=== PATIENT | female | born 1930 | race African-American/Black ===

== ENCOUNTER 2018-06-04 15:07 | Inpatient (IN) ==
[2018-06-04 20:31] LABS: BASO# 0.02 X1000 (0.0-0.2); BASO% 0.3 % (0.0-0.8); EOS# 0.03 X1000 (0.0-0.7); EOS% 0.5 % (0.0-10.0); HEMATOCRIT 37.8 % (37.0-47.0); HEMOGLOBIN 12.1 g/dL (12.0-16.0); IMM GRAN# 0.02 X1000 (0.0-0.04); IMM GRAN% 0.3 % (0.0-0.5); LYMPH# 1.07 X1000 (1.2-3.4); LYMPH% 16.4 % (20.5-51.1); MCH 28.4 PG (27-31); MCV 88.7 FL (81-99); MONO% 6.1 % (1.7-9.3); MPV 13.4 FL (7.4-10.4); NEUT# 4.97 X1000 (1.4-6.5); NEUT% 76.4 % (42.2-75.2); PLT 211 X1000 (130-400); RBC 4.26 XMIL (4.2-5.4); RDW 13.7 % (11.5-14.5); WBC 6.51 X1000 (4.8-10.8)
[2018-06-04 21:06] LABS: ALBUMIN 3.7 g/dL (3.5-5.0); CREATININE 2.6 mg/dL (0.5-0.9); TOTAL BILIRUBIN 0.2 mg/dL (0.20-1.00); TOTAL PROTEIN 7.1 g/dL (6.3-8.3)
[2018-06-04 21:07] LABS: POTASSIUM 6.2 mmol/L (3.5-5.1)
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
[2018-06-04] MEDS ORDERED: HUMULIN R IV ONE (21:12)
[2018-06-04] MEDS ORDERED: SODIUM BICARBONATE 8.4% IV PUSH ONE (21:12)
[2018-06-04] MEDS ORDERED: HUMULIN R (PARKWAY) ONE (21:14)
[2018-06-04 21:23] LABS: BILIRUBIN URINE NEGATIVE (NEGATIVE); BLOOD URINE NEGATIVE (NEGATIVE); CLARITY CLEAR (CLEAR); COLOR YELLOW; KETONE URINE NEGATIVE (NEGATIVE); LEUKOCYTES URINE TRACE (NEGATIVE); NITRITE URINE NEGATIVE (NEGATIVE); PROTEIN URINE NEGATIVE (NEGATIVE); URINE BACTERIA 4+ /HFP; URINE EPITHELIAL CELLS <10 /HPF (<10); URINE SOURCE CLEAN CATCH; URINE WBC <10 /HPF (<10); UROBILINOGEN URINE NORMAL
--- NOTE | 2018-06-04 21:35 | PROVIDER DOCUMENTATION ---
HPI-General Adult - General Chief Complaint: General Adult Stated Complaint: Fall Time Seen by Provider: 06/04/18 19:37 Source: patient, family Allergies/Adverse Reactions: Patient Allergies Allergy/AdvReac Type Severity Reaction Status Date / Time No Known Allergies Allergy Verified 06/04/18 15:18 Home Medications: Home Medication List Medication Instructions Recorded Confirmed Last Taken Type Desipramine HCl 10 mg PO HS 06/17/16 12/11/17 06/16/16 21:00 History Gabapentin 100 mg PO HS 06/17/16 12/11/17 06/16/16 21:00 History Furosemide [Lasix] 40 mg PO DAILY #30 06/21/16 12/11/17 06/16/16 08:00 Rx Allopurinol 100 mg PO DAILY 12/11/17 12/11/17 Unknown History Aspirin [Aspir-Low] 1 tab PO DAILY 12/11/17 12/11/17 Unknown History Calcium Citrate/Vitamin D3 1 tab PO DAILY 12/11/17 12/11/17 Unknown History [Calcitrate + Vit D Caplet] Carbidopa/Levodopa [Sinemet 25/100] 1 each PO DAILY PRN 12/11/17 12/11/17 Unknown History Cholecalciferol (Vitamin D3) 2,000 unit PO DAILY 12/11/17 12/11/17 Unknown History [Vitamin D3] Iron Fum,Ps/Folic/Bcomp,C No.9 1 cap PO DAILY 12/11/17 12/11/17 Unknown History [Folivane-Plus Capsule] Linaclotide [Linzess] 290 mcg PO DAILY 12/11/17 12/11/17 Unknown History Potassium Chloride 20 mg PO BID 12/11/17 12/11/17 Unknown History Hydrocodone/Acetaminophen [[place] 1 ea PO Q12H PRN PRN #20 tab 12/14/17 Unknown Rx 5-325 Tablet] Insulin Glargine [Basaglar] 15 unit SUBQ HS #1 insuln.pen 12/14/17 Unknown Rx Insulin Regular, Human [Novolin R] See Protocol SQ AC + HS #1 vial 12/15/17 Unknown Rx - History of Present Illness -Gen Adult Nature of Presenting Problems: Patient is a 87 year old black female with history of diabetes, HTN,atrial fibrillation, and arthritis who presents with worsening pain and weakness in lower extremities for past several days. Denies fever, chills, chest pain, productive cough, nausea, vomiting, or diarrhea. Followed by Dr. Covarrubias. Review of Systems - Adult - REVIEW OF SYSTEMS - ADULT ROS:: ROS per family Constitutional: denies: chills, fever Eyes: reports: no symptoms reported Ears, Nose, Mouth & Throat: reports: no symptoms reported Cardiovascular: denies: chest pain Respiratory: denies: shortness of breath Gastrointestinal: denies: abdominal pain, nausea, vomiting Genitourinary: denies: dysuria Musculoskeletal: reports: see HPI Integumentary: denies: rash Neurological: reports: other (generalized weakness) Psychiatric: reports: see HPI Endocrine: reports: increased thirst, polyuria Hematologic/Lymphatic: reports: no symptoms reported Allergic/Immunologic: reports: see HPI All Other Systems: Reviewed and Negative Past History - Adult - PAST MEDICAL HISTORY-ADULT Review of Records: reports: Old Records Reviewed, Nursing Assessment Review, Medications Reviewed, Social history reviewed & non-contributory. Major Childhood Illnesses: reports: denies history Cardiovascular: reports: A-Fib, HTN, hyperlipidemia Respiratory: reports: asthma Gastrointestinal: reports: GERD Obstetrical/Gynecological: reports: denies history Genitourinary: reports: other (hx of acute and chronic kidney dz) Musculoskeletal: reports: arthritis (gout) Neurological: reports: CVA, other (periphreal neurpothay) Endocrine/Immune: reports: anemia, Diabetes Other Conditions: reports: denies history - PRIOR SURGERIES/PROCEDURES Surgical/Procedure History: reports: cholecystectomy, hysterectomy, other ( cataract ) - IMMUNIZATION STATUS Childhood Immunizations: See Nurse Assessment Flu Vaccine: See Nurse Assessment - FAMILY HISTORY Family History: reviewed, not pertinent Physical Exam-General - PHYSICAL EXAM-ADULT Initial Vital Signs Reviewed: Yes - CONSTITUTIONAL General Appearance: alert, other (generalized aches) - EYES Eyes: other (clear) - HEAD, EARS, NOSE, MOUTH & THROAT HENMT: other (semimoist membranes) - NECK Neck: supple - RESPIRATORY Respiratory: no respiratory distress, no accessory muscle use, decreased breath sounds - CARDIOVASCULAR Cardiovascular: regular rate, rhythm - GASTROINTESTINAL (ABDOMEN) Abdominal Exam: non tender, soft. negative: distended, guarding, rebound - LYMPHATIC Lymphatic: no adenopathy - MUSCULOSKELETAL Back Exam: normal inspection, no CVA tenderness Extremity: other (vague lower extremity tenderness, no deformities, good distal capillary refill) - SKIN Integumentary: other (decreased turbor) - NEUROLOGIC Neurologic: other (nonfocal) - PSYCHIATRIC Psych/Mental Status: other (demented) Progress - PLAN OF CARE/RESULTS Progress/Plan/Lab Results: Vital Signs - 8 hr 06/04/18 15:14 06/04/18 17:01 06/04/18 20:37 Temperature 98.3 F 97.6 F 97.8 F Pulse Rate 82 67 64 Respiratory Rate 16 14 20 Blood Pressure 161/83 157/93 186/74 O2 Sat by Pulse Oximetry 95 96 96 Laboratory Results - last 24 hr 06/04/18 06/04/18 06/04/18 20:28 20:28 20:36 WBC 6.51 RBC 4.26 Hgb 12.1 Hct 37.8 MCV 88.7 MCH 28.4 MCHC 32.0 L RDW Std Deviation 13.7 Plt Count 211 MPV 13.4 H Immature Gran % (Auto) 0.3 Neut % (Auto) 76.4 H Lymph % (Auto) 16.4 L [place] % (Auto) 6.1 Eos % (Auto) 0.5 Baso % (Auto) 0.3 Immature Gran # (Auto) 0.02 Neut # (Auto) 4.97 Lymph # (Auto) 1.07 L [place] # (Auto) 0.40 Eos # (Auto) 0.03 Baso # (Auto) 0.02 Sodium 129 L Potassium 6.2 H* Chloride 94 L Carbon Dioxide 19 L Anion Gap 15 BUN 59 H Creatinine 2.6 H Estimated GFR/1.73 m2 17 BUN/Creatinine Ratio 23 Glucose 862 H* Calculated Osmolality 318 Calcium 10.0 Total Bilirubin 0.20 AST 7 L ALT 5 L Alkaline Phosphatase 139 H Total Protein 7.1 Albumin 3.7 Globulin 3.0 Albumin/Globulin Ratio 1.0 Urine Source CLEAN CATCH Urine Color YELLOW Urine Clarity CLEAR Urine pH 5.0 Ur Specific [place] 1.010 Urine Protein NEGATIVE Urine Ketones NEGATIVE Urine Blood NEGATIVE Urine Nitrite NEGATIVE Urine Bilirubin NEGATIVE Urine Urobilinogen NORMAL Urine Microscopic RBC Not Reportable Urine WBC TRACE A Urine Microscopic WBC <10 Ur Epithelial Cells <10 Urine Bacteria 4+ Urine Glucose 3+(500 mg/dL) A Orders Category Date Time Status HIP W/PELVIS BILAT 2 VIEWS [RAD] Stat Exams 06/04/18 20:01 Completed CBC WITH ELECTRONIC DIFF [HEME] Stat Lab 06/04/18 20:28 Completed CMP [COMPREHENSIVE METABOLIC PANEL] [CHEM] Stat Lab 06/04/18 20:[address] W/POSS RFLX CULT [URINALYSIS] Stat Lab 06/04/18 20:36 Completed URINE CULTURE [RM] Routine Lab 06/04/18 21:23 Ordered Insulin Human Regular ([place] [Humulin R ([place])] Med 06/04/18 21:14 Discontinued 7 units .ROUTE .STK-MED ONE Insulin Human Regular [Humulin R] Med 06/04/18 21:12 Discontinued 7 unit IV NOW ONE Sodium Bicarbonate 8.4% Med 06/04/18 21:12 Discontinued 50 meq IV PUSH NOW ONE Result Diagrams: 06/04/18 20:28 06/04/18 20:28 - EKG 1 Time of EKG reading by physician:: 20:38 EKG Read and Signed by:: Dieudonne Napier Rate: 62 Rhythm: NSR [place]: normal ST Wave: non-specific ST changes Comments: no STEMI - CONSULTS/PCP/HOSPITALIST Notification #1 *Consult/PCP/Hospitalist*: DR. COVARRUBIAS Time Discussed: 21:45 Consult Disposition: Admit Departure - Departure Date of Disposition Decision: 06/04/18 Time of Disposition Decision: 21:48 DIAGNOSIS: Hyperkalemia Uncontrolled diabetes mellitus Qualifiers: Diabetes mellitus type: type 2 Glycemic state: with hyperglycemia Qualified Code(s): E11.65 - Type 2 diabetes mellitus with hyperglycemia Disposition: ADMITTED INPATIENT 09 Certified Medical Emergency: Emergent Condition: Stable Referrals and Follow-Ups: Juan Carlos Covarrubias MD [Primary Care Provider] - - Critical Care Note This patient required my direct & personal management of CC.: No Total Time (mins): 125 Critical Care Statement: This patient required my direct personal management to treat or rule out processes, the absence of which, could potentiallly result in sudden, clinically significant life or limb threatening deterioration. Attestation - Physician/ MONI Attestation Patient care was provided by Advanced Practice Provider:: No The physician spent face to face time with patient:: Yes Advanced Practice Provider documentation review:: Supervising physician onsite and consulted in the evaluation and care of this patient. The physician did have a face to face encounter with the patient.
[2018-06-04] MEDS ORDERED: NS 500 ML IV ONE (21:38)
[2018-06-04] MEDS ORDERED: NS 1,000 ML IV ONE (21:49)
[2018-06-04] MEDS ORDERED: HUMULIN R (PARKWAY) SUBQ ONE (21:51)
[2018-06-04] MEDS ORDERED: TYLENOL PO ONE (23:21)
[2018-06-05 04:35] LABS: CALCIUM 9.6 mg/dL (8.8-10.2); CREATININE 2.4 mg/dL (0.5-0.9); POTASSIUM 4.5 mmol/L (3.5-5.1)
--- NOTE | 2018-06-05 07:01 | EKG Report ---
Test Performed on : 06/04/2018 9:37:41 PM Test Reason : hyperkalemia Blood Pressure : / mmHG Vent. Rate : 062 BPM Atrial Rate : 062 BPM P-R Int : 126 ms QRS Dur : 070 ms QT Int : 458 ms P-R-T Axes : -26 020 -36 degrees QTc Int : 464 ms Normal sinus rhythm. T wave abnormality, consider anterolateral ischemia Abnormal ECG When compared with ECG of 07-DEC-2017 02:54, (Unconfirmed) fusion complexes are no longer present Nonspecific T wave abnormality has replaced inverted T waves in Inferior leads T wave inversion less evident in Lateral leads Unconfirmed Result
[2018-06-05 08:06] LABS: CALCIUM 9.6 mg/dL (8.8-10.2); CREATININE 2.5 mg/dL (0.5-0.9); POTASSIUM 4.5 mmol/L (3.5-5.1)
[2018-06-05] MEDS ORDERED: TYLENOL PO PRN (08:27)
[2018-06-05] MEDS ORDERED: ZOFRAN IV PRN (08:27)
[2018-06-05] MEDS ORDERED: SINEMET 25/100 PO PRN (15:44)
--- NOTE | 2018-06-05 16:07 | HISTORY AND PHYSICAL ---
CHIEF COMPLAINT: Fatigue and frequent falling. HISTORY OF PRESENT ILLNESS: Patient is an 87-year-old female, who presented to the hospital with increased fatigue, frequent falling. Denies any dizziness, denies any focalized weakness, denies any injury with falling. SOCIAL HISTORY: Patient is a . She is retired. Lives at home in [place]. Does not smoke or drink. ALLERGIES: No known drug allergies. MEDICATIONS: I do not have an active medication list. She has a history of being on Neurontin, Lasix, allopurinol, calcium, Sinemet, and insulin. PAST MEDICAL HISTORY: Significant for atrial fibrillation, hypertension, hyperlipidemia, COPD, reflux, chronic kidney disease, gout, diabetes. 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 She has had a hysterectomy, cholecystectomy and cataract surgery in the past as well. FAMILY HISTORY: Noncontributory, although does have family history of diabetes and COPD. REVIEW OF SYSTEMS: As noted above. Patient notes that she has been more tired and fatigued. She has had frequent falling. Denies any focalized weakness, although does have some pain in her lower extremities. Denies any injury due to the falling. Denies any dysuria, urinary frequency or urgency. Notes that she does check her blood sugars at home, but does not know what the readings have typically been. PHYSICAL EXAMINATION: VITAL SIGNS: Temperature 98.3, pulse is 82, respiratory 16, BP 161/83, satting 95% on room air. GENERAL: Patient is awake, alert. She is currently in no respiratory distress. She is quite pleasant to talk to. HEENT: Normocephalic. NECK: Supple. CV: Regular rate. No appreciable murmurs. CHEST: Decreased, but equal breath sounds bilaterally. ABDOMEN: Soft, nondistended. No masses. EXTREMITIES: She has no edema currently. She has no focal weakness. SKIN: No rashes. NEUROLOGIC: She is awake, alert, appears oriented. LABS: CBC normal. CMP with an elevated creatinine at 2.5. Her baseline is around 1.6 to 1.9, potassium at 6.2, sodium 129 and glucose at 862. ASSESSMENT: 1. Diabetes with marked hyperglycemia. 2. Acute on chronic renal failure. 3. Hyponatremia, which actually corrects to normal given her significant hyperglycemia. 4. Hyperkalemia. 5. Volume depletion. 6. Frequent falls. 7. History of atrial fibrillation. 8. History of cerebrovascular accident. 9. Hypertension. PLAN: We will admit patient to the hospital. IV fluids. Place her on a sliding scale insulin at the moment. We will restart her home medications when list is available and accurate. cc: Juan Carlos Covarrubias MD
[2018-06-05] MEDS: HUMALOG (PARKWAY) SUBQ SCH ×3 (16:35→21:23)
[2018-06-05] MEDS: NS 1,000 ML IV SCH ×2 (16:41→23:39)
[2018-06-05] MEDS: ASPIRIN EC PO SCH (16:44)
[2018-06-05] MEDS: KLOR-CON PO SCH (21:22)
[2018-06-05] MEDS: COZAAR PO SCH (21:22)
[2018-06-05] MEDS: BASAGLAR SUBQ SCH (21:23)
[2018-06-05] MEDS: NEURONTIN PO SCH (21:23)
[2018-06-05] MEDS: PATIENT'S OWN MED PO SCH (23:30)
[2018-06-06] MEDS: LINZESS PO SCH (06:29)
[2018-06-06] MEDS: HUMALOG (PARKWAY) SUBQ SCH ×4 (06:43→22:49)
[2018-06-06 07:29] LABS: AGAP 11; ALBUMIN 2.9 g/dL (3.5-5.0); ALKALINE PHOSPHATASE 107 U/L (32-104); BUN 41 mg/dL (8-22); CALCIUM 9.3 mg/dL (8.8-10.2); CHLORIDE 108 mmol/L (98-107); COSMO 296; CREATININE 1.8 mg/dL (0.5-0.9); ESTIMATED GFR 27; GLUCOSE 248 mg/dL (70-104); GOT 11 U/L (10-30); GPT < 5 U/L (10-36); MAGNESIUM 2.3 mg/dL (1.5-2.7); POTASSIUM 4.9 mmol/L (3.5-5.1); SODIUM 139 mmol/L (136-145); TCO2 20 mmol/L (25-35); TOTAL BILIRUBIN < 0.15 mg/dL (0.20-1.00); TOTAL PROTEIN 5.8 g/dL (6.3-8.3)
[2018-06-06 07:40] LABS: HEMATOCRIT 32.3 % (37.0-47.0); HEMOGLOBIN 10.1 g/dL (12.0-16.0); MCH 27.8 PG (27-31); MCHC 31.3 g/dL (33-37); MPV 13.2 FL (7.4-10.4); RBC 3.63 XMIL (4.2-5.4); RDW 13.5 % (11.5-14.5); WBC 8.79 X1000 (4.8-10.8)
[2018-06-06] MEDS: ROCEPHIN 1 GM in NS 50 ML IV SCH (10:12)
[2018-06-06] MEDS: ZYLOPRIM PO SCH (10:12)
[2018-06-06] MEDS: COZAAR PO SCH ×2 (10:12→22:49)
[2018-06-06] MEDS: ASPIRIN EC PO SCH (10:12)
[2018-06-06] MEDS: LASIX PO SCH (10:12)
[2018-06-06] MEDS: KLOR-CON PO SCH ×2 (10:12→22:48)
--- NOTE | 2018-06-06 10:52 | PROGRESS NOTE ---
DATE: 06/06/2018 SUBJECTIVE: Patient notes she is having some difficulty swallowing at times. Feels as though her food gets stuck. She is still very weak and fatigued. Denies any chest pain or palpitations. PHYSICAL EXAMINATION: Vital Signs: Temperature 98.2 degrees, pulse 78, respiratory rate 20, BP 109/64. General: The patient is awake, alert, currently in no distress. Pleasant to talk with. Lying flatly in the bed. HEENT: Normocephalic. Neck: Supple. CV: Regular rate. No murmurs. Chest: Clear, nonlabored. Abdomen: Soft, nondistended. Extremities: Moves all extremities. No edema. ASSESSMENT: 1. Urinary tract infection. Her urine culture is growing gram-negative rods. We will place on Rocephin. 2. Dysphagia. We will continue to follow. Certainly may need a swallowing study versus an esophagogastroduodenoscopy. 3. Diabetes with hyperglycemia, improved. 4. Volume depletion, improved. 5. Acute on chronic renal failure. Creatinine is back to her baseline. 6. Hyperkalemia, resolved. 7. Hyponatremia, resolved. 8. Frequent falls. 9. History of cerebrovascular accident. 10. History of atrial fibrillation. PLAN: As noted, we will continue IV fluids today. We will start on Rocephin for urinary tract infection. Continue sliding scale insulin. Get physical therapy involved. Further orders as needed. cc: Juan Carlos Covarrubias MD
[2018-06-06] MEDS: NS 1,000 ML IV SCH (14:19)
[2018-06-06] MEDS: NEURONTIN PO SCH (22:49)
[2018-06-06] MEDS: BASAGLAR SUBQ SCH (22:49)
[2018-06-06] MEDS: PATIENT'S OWN MED PO SCH (22:58)
[2018-06-07] MEDS: NS 1,000 ML IV SCH ×2 (04:22→18:13)
[2018-06-07] MEDS: HUMALOG (PARKWAY) SUBQ SCH ×4 (06:10→22:10)
[2018-06-07] MEDS: LINZESS PO SCH (06:21)
[2018-06-07] MEDS: ZYLOPRIM PO SCH (08:41)
[2018-06-07] MEDS: SODIUM CHLORIDE 0.9% INJ SCH (08:41)
[2018-06-07] MEDS: ASPIRIN EC PO SCH (08:41)
[2018-06-07] MEDS: LASIX PO SCH (08:41)
[2018-06-07] MEDS: PROTONIX IV SCH ×2 (08:41→22:10)
[2018-06-07] MEDS: KLOR-CON PO SCH ×2 (08:41→22:12)
[2018-06-07] MEDS: COZAAR PO SCH ×2 (08:41→22:12)
[2018-06-07] MEDS: ROCEPHIN 1 GM in NS 50 ML IV SCH (08:42)
[2018-06-07] MEDS ORDERED: BUPRENORPHINE TD SCH ×2 (09:00)
[2018-06-07] MEDS: BASAGLAR SUBQ SCH (22:11)
[2018-06-07] MEDS: NEURONTIN PO SCH (22:12)
--- NOTE | 2018-06-07 22:59 | PROGRESS NOTE ---
DATE: 06/07/2018 SUBJECTIVE: Patient notes that she is having some epigastric pain and nausea. States sometimes she feels that food gets stuck. Does not have any issues to report currently. PHYSICAL EXAMINATION: Vital Signs: Reviewed. Temperature 98.5 degrees, pulse 60, respiratory rate 20, blood pressure 120/54. General: Patient is awake, alert, currently in no distress. Pleasant to talk with. HEENT: Normocephalic. Neck: Supple. Cardiovascular: Regular rate. Chest: Clear. Abdomen: Soft. Extremities: Moves all extremities. ASSESSMENT: 1. Epigastric pain, likely peptic ulcer disease, creating dysphagia. 2. Gram negative marizol urinary tract infection. Continue antibiotics. 3. [id number] renal failure. 4. Hyponatremia. 5. Hyperkalemia. 6. Frequent falls. PLAN: We will continue physical therapy. Continue antibiotics, IV fluids. Her creatinine is actually improved from 2.6, down to 1.8. Will follow. cc: Juan Carlos Covarrubias MD
[2018-06-07] MEDS: PATIENT'S OWN MED PO SCH (23:50)
[2018-06-08] MEDS: HUMALOG (PARKWAY) SUBQ SCH ×5 (06:13→21:00)
[2018-06-08] MEDS: NS 1,000 ML IV SCH ×2 (06:17→08:11)
[2018-06-08] MEDS: LINZESS PO SCH (06:17)
[2018-06-08 07:49] LABS: HEMATOCRIT 32.4 % (37.0-47.0); HEMOGLOBIN 10.1 g/dL (12.0-16.0); MCH 27.7 PG (27-31); MCHC 31.2 g/dL (33-37); MPV 13.1 FL (7.4-10.4); RBC 3.64 XMIL (4.2-5.4); RDW 13.6 % (11.5-14.5); WBC 6.46 X1000 (4.8-10.8)
[2018-06-08] MEDS: KLOR-CON PO SCH ×2 (08:13→21:01)
[2018-06-08] MEDS: ZYLOPRIM PO SCH (08:13)
[2018-06-08] MEDS: PROTONIX IV SCH ×2 (08:13→20:59)
[2018-06-08] MEDS: ASPIRIN EC PO SCH (08:13)
[2018-06-08] MEDS: SODIUM CHLORIDE 0.9% INJ SCH (08:13)
[2018-06-08] MEDS: COZAAR PO SCH ×2 (08:14→21:01)
[2018-06-08] MEDS: LASIX PO SCH (08:15)
[2018-06-08] MEDS: ROCEPHIN 1 GM in NS 50 ML IV SCH (08:24)
[2018-06-08 08:30] LABS: AGAP 6; ALBUMIN 2.6 g/dL (3.5-5.0); ALKALINE PHOSPHATASE 101 U/L (32-104); BUN 21 mg/dL (8-22); CALCIUM 8.8 mg/dL (8.8-10.2); CHLORIDE 109 mmol/L (98-107); COSMO 283; CREATININE 1.4 mg/dL (0.5-0.9); ESTIMATED GFR 36; GLUCOSE 104 mg/dL (70-104); GOT 10 U/L (10-30); GPT < 5 U/L (10-36); POTASSIUM 4.2 mmol/L (3.5-5.1); SODIUM 140 mmol/L (136-145); TCO2 24 mmol/L (25-35); TOTAL BILIRUBIN < 0.15 mg/dL (0.20-1.00); TOTAL PROTEIN 5.3 g/dL (6.3-8.3)
[2018-06-08] MEDS: BASAGLAR SUBQ SCH (21:00)
[2018-06-08] MEDS: NEURONTIN PO SCH (21:01)
[2018-06-08] MEDS: PATIENT'S OWN MED PO SCH (21:02)
--- NOTE | 2018-06-08 22:58 | PROGRESS NOTE ---
DATE: 06/08/2018 SUBJECTIVE: Patient notes that her swallowing has improved. Her epigastric pain is resolved. Notes that she is overall feeling better. PHYSICAL EXAMINATION: Vital Signs: Reviewed. Temperature 98.5, pulse 60, respiratory rate 20, blood pressure 120/54. General: Patient is awake, currently in no distress. HEENT: Normocephalic. Neck: Supple. Cardiovascular: Regular rate. Chest: Clear. Abdomen: Soft. Extremities: Moves all extremities. ASSESSMENT: 1. Nausea and vomiting= continues to improve. 2. Gastritis, improving. 3. Diabetes, with marked hyperglycemia, improved. 4. Hyponatremia, improved. 5. Volume depletion. 6. Frequent falls. PLAN: We will continue patient in the hospital. We will continue to follow. Hopefully, can discharge to rehab tomorrow if symptoms continue to improve. cc: Juan Carlos Covarrubias MD
[2018-06-09] MEDS: HUMALOG (PARKWAY) SUBQ SCH ×2 (06:14→10:59)
[2018-06-09] MEDS: LINZESS PO SCH (06:15)
[2018-06-09 07:59] VITALS: BP 135/58
--- NOTE | 2018-06-09 08:45 | DISCHARGE SUMMARY ---
ADMISSION DATE: 06/05/2018 DISCHARGE DATE: 06/09/2018 DISCHARGE DIAGNOSES: 1. Adult failure to thrive. 2. Dehydration, resolved. 3. Hyperkalemia, resolved. 4. Acute on chronic renal failure, resolved. 5. Urinary tract infection. Patient received antibiotics for 3 days. Does not need further antibiotics. 6. Dysphagia, improved. 7. Gastritis, improved with Prevacid. CONSULTATIONS: None. PROCEDURES: None. BRIEF HOSPITAL COURSE: Patient is an 87-year-old female who presented to the hospital with falling and adult failure to thrive and generalized weakness. She was noted to have hyperglycemia and appeared to have a urinary tract infection. She was placed on antibiotics. Physical therapy was consulted. She developed some gastritis and difficulty swallowing. This was easily improved with Prevacid. On discharge, she notes that she is able to swallow without any difficulty. Overall, she is feeling better, although she is still generally weak. DISPOSITION: Patient will be discharged to rehab. We will continue her medications without any changes. We will not need antibiotics at this point. TIME SPENT: Greater than 30 minutes was spent in total care on date of discharge. cc: Juan Carlos Covarrubias MD
[2018-06-09] MEDS: COZAAR PO SCH (09:24)
[2018-06-09] MEDS: SODIUM CHLORIDE 0.9% INJ SCH (09:24)
[2018-06-09] MEDS: PROTONIX IV SCH (09:24)
[2018-06-09] MEDS: ASPIRIN EC PO SCH (09:24)
[2018-06-09] MEDS: KLOR-CON PO SCH (09:25)
[2018-06-09] MEDS: LASIX PO SCH (09:25)
[2018-06-09] MEDS: ZYLOPRIM PO SCH (09:25)
[2018-06-09] MEDS: ROCEPHIN 1 GM in NS 50 ML IV SCH (09:25)
--- NOTE | 2018-06-09 12:54 | Diag Imaging Result Doc PS360 ---
EXAM: CHEST-PORTABLE HISTORY: Required for SNF placement TECHNIQUE: Portable chest COMPARISON: 12/14/2017 FINDINGS: The lungs are well expanded. The heart is not enlarged. The vessels are not distended. There are no infiltrates. No effusion identified. Moderate sized hiatal hernia. IMPRESSION: Stable chest. Electronically signed by Riaz George 06/09/2018 12:53 PM
== END 2018-06-09 16:24 | DRG 683 ==
LOC: P.ED 15:07 → P.MEDSURG 06-05 00:11
PROVIDERS: ADMIT Family Medicine; ATTEND Family Medicine
CPT/HCPCS: 51702; 71010; 71045; 73521; 80048; 80053; 81001; 82948; 83735; 85025; 85027; 87077; 87088; 93005; 94761; 96361; 96374; 99285; A9270; C9113; J0696; J1815; J7030; S0164; XXXXX

== ENCOUNTER 2018-12-16 08:40 | Inpatient (IN) ==
[2018-12-16] MEDS ORDERED: NS 500 ML IV ONE (09:17)
[2018-12-16] MEDS ORDERED: HUMULIN R IV ONE ×2 (09:18→10:06)
[2018-12-16 09:32] LABS: PHOSPHORUS 4.7 mg/dL (2.7-4.5)
[2018-12-16 09:37] LABS: BASO# 0.02 X1000 (0.0-0.2); BASO% 0.4 % (0.0-0.8); EOS# 0.14 X1000 (0.0-0.7); EOS% 2.6 % (0.0-10.0); HEMATOCRIT 35.1 % (37.0-47.0); HEMOGLOBIN 11.1 g/dL (12.0-16.0); IMM GRAN# 0.02 X1000 (0.0-0.04); IMM GRAN% 0.4 % (0.0-0.5); LYMPH# 1.72 X1000 (1.2-3.4); LYMPH% 32.1 % (20.5-51.1); MCH 28.2 PG (27-31); MCHC 31.6 g/dL (33-37); MCV 89.1 FL (81-99); MONO% 7.5 % (1.7-9.3); NEUT# 3.06 X1000 (1.4-6.5); PLT 177 X1000 (130-400); RBC 3.94 XMIL (4.2-5.4); RDW 13.5 % (11.5-14.5); WBC 5.36 X1000 (4.8-10.8)
[2018-12-16 09:47] LABS: BLOOD TYPE VENOUS; SAMPLE BLOOD
[2018-12-16 10:06] LABS: ALBUMIN 4.4 g/dL (3.5-5.0); CALCIUM 9.5 mg/dL (8.8-10.2); CREATININE 2.7 mg/dL (0.5-0.9); MAGNESIUM 2.3 mg/dL (1.5-2.7); POTASSIUM 5.2 mmol/L (3.5-5.1); TOTAL BILIRUBIN 0.2 mg/dL (0.20-1.00); TOTAL PROTEIN 7.3 g/dL (6.3-8.3)
[2018-12-16] MEDS ORDERED: D50W SYRINGE IV PRN (10:06)
[2018-12-16] MEDS ORDERED: POTASSIUM CHLORIDE 10 MEQ in 1/2 NS 1,000 ML IV SCH (10:15)
[2018-12-16] MEDS ORDERED: HUMULIN R 100 UNIT in NS 100 ML IV SCH (10:15)
[2018-12-16 10:48] LABS: ANISOCYTOSIS 1+; LYMPHS 21 % (21-51); SEGS 79 % (42-75)
--- NOTE | 2018-12-16 10:51 | Diag Imaging Result Doc PS360 ---
EXAM: CHEST-PORTABLE HISTORY: DKA TECHNIQUE: Chest single view COMPARISON: 06/09/2018 FINDINGS: The lungs are well expanded. The heart is not enlarged. The vessels are not distended. There are no infiltrates. No effusion identified. Moderate sized hiatal hernia. IMPRESSION: Negative exam. Electronically signed by Riaz George 12/16/2018 10:49 AM
--- NOTE | 2018-12-16 11:07 | PROVIDER DOCUMENTATION ---
This chart was entered by Susi Gavin Scribe, acting as scribe for Ephraim Talbert MD. HPI-General Adult - General Chief Complaint: High Blood Sugar Stated Complaint: HYPERGLYCEMIA Time Seen by Provider: 12/16/18 09:07 Source: patient, family (DAUGHTER) Allergies/Adverse Reactions: Patient Allergies Allergy/AdvReac Type Severity Reaction Status Date / Time No Known Allergies Allergy Verified 06/04/18 15:18 Home Medications: Home Medication List Medication Instructions Recorded Confirmed Last Taken Type Desipramine HCl 10 mg PO HS 06/17/16 06/05/18 06/16/16 21:00 History Furosemide [Lasix] 40 mg PO DAILY #30 06/21/16 06/05/18 06/16/16 08:00 Rx Allopurinol 100 mg PO DAILY 12/11/17 06/05/18 Unknown History Aspirin [Aspir-Low] 1 tab PO DAILY 12/11/17 06/05/18 Unknown History Carbidopa/Levodopa [Sinemet 25/100] 1 each PO DAILY PRN 12/11/17 06/05/18 Unknown History Linaclotide [Linzess] 290 mcg PO DAILY 12/11/17 06/05/18 Unknown History Potassium Chloride 20 mg PO BID 12/11/17 06/05/18 Unknown History Insulin Glargine [Basaglar] 15 unit SUBQ HS #1 insuln.pen 12/14/17 06/05/18 Unknown Rx Calcium Carbonate/Vitamin D3 1 each PO DAILY 06/05/18 06/05/18 Unknown History [Calcium 500 + Vit D Caplet] Ibuprofen [Advil] 200 mg PO 4XDAY PRN PRN 06/05/18 06/05/18 Unknown History Insulin Aspart [Novolog Flexpen] 2 units SQ DIRECTED PRN 06/05/18 06/05/18 Unknown History Losartan [Cozaar] 25 mg PO BID 06/05/18 06/05/18 Unknown History Metolazone 5 mg PO DIRECTED 06/05/18 06/05/18 Unknown History Acetaminophen [Tylenol] 650 mg PO Q6H PRN PRN tablet 06/09/18 Unknown Rx Buprenorphine 5 mcg TD DIRECTED #2 patch.tdwk 06/09/18 Unknown Rx Gabapentin 300 mg PO HS #15 cap 06/09/18 Unknown Rx Pantoprazole [Protonix] 40 mg PO DAILY@0700 #30 tab 06/09/18 Unknown Rx Insulin Aspart [Novolog Flexpen] 2 unit SQ DIRECTED PRN PRN #1 07/04/18 Unknown Rx insuln.pen Insulin Glargine,Hum.rec.anlog 100 unit SQ HS #1 insuln.pen 07/04/18 Unknown Rx [Basaglar Kwikpen U-100] - History of Present Illness -Gen Adult Nature of Presenting Problems: 88YOF PRESENTS TO ED BY EMS CC HIGH BLOOD SUGAR AND WEAKNESS. PT DAUGHTER IS AT BEDSIDE AND REPORTS PT CALLED HER THIS MORNING AND TOLD HER SHE DIDN'T FEEL GOOD, WAS EXTREMELY THIRSTY AND COULDN'T GET OUT OF HER CHAIR. EMS REPORTS PT BLOOD SUGAR WAS OVER 500 UPON ARRIVAL. PT HAS HX OF DM, HTN AND CHRONIC PAIN FOR WHICH SHE SEES PAIN CLINIC FOR. PT DENIES V/N/D AND DYSURIA. Location of Pain/Injury: reports: generalized Quality of Pain: reports: aching Severity: reports: mild Onset/Duration: reports: this morning Timing: reports: still present Context/Activities at Onset: reports: light activity Modifying Factors: worse with: movement, palpation Associated Symptoms: reports: fatigue, muscle aches Similar Symptoms Previously?: Yes Recently seen or treated by another doctor?: No - Diabetes Related Context Context: reports: high blood sugar Review of Systems - Adult - REVIEW OF SYSTEMS - ADULT Constitutional: reports: see HPI, thomque. denies: chills, fever Eyes: reports: no symptoms reported Ears, Nose, Mouth & Throat: reports: no symptoms reported Cardiovascular: reports: no symptoms reported Respiratory: reports: no symptoms reported Gastrointestinal: reports: see HPI. denies: diarrhea, nausea, vomiting Genitourinary: reports: see HPI. denies: dysuria Musculoskeletal: reports: no symptoms reported Integumentary: reports: no symptoms reported Neurological: reports: no symptoms reported Psychiatric: reports: no symptoms reported Endocrine: reports: see HPI, increased thirst, other (HIGH BLOOD SUGAR) Hematologic/Lymphatic: reports: no symptoms reported Allergic/Immunologic: reports: no symptoms reported All Other Systems: Reviewed and Negative Past History - Adult - PAST MEDICAL HISTORY-ADULT Review of Records: reports: Nursing Assessment Review, Medications Reviewed, Social history reviewed & non-contributory. Major Childhood Illnesses: reports: denies history Cardiovascular: reports: A-Fib, HTN, hyperlipidemia Respiratory: reports: asthma Gastrointestinal: reports: GERD Obstetrical/Gynecological: reports: denies history Genitourinary: reports: other (hx of acute and chronic kidney dz) Musculoskeletal: reports: arthritis (gout) Neurological: reports: CVA, other (periphreal neurpothay) Endocrine/Immune: reports: anemia, Diabetes Other Conditions: reports: denies history - PRIOR SURGERIES/PROCEDURES Surgical/Procedure History: reports: cholecystectomy, hysterectomy, other (cataract ) - IMMUNIZATION STATUS Childhood Immunizations: See Nurse Assessment Flu Vaccine: See Nurse Assessment - FAMILY HISTORY Family History: reviewed, not pertinent - SOCIAL HISTORY Smoking: denies Physical Exam-General - PHYSICAL EXAM-ADULT Initial Vital Signs Reviewed: Yes - CONSTITUTIONAL General Appearance: appears well, alert, no apparent distress. negative: anxious, combative - EYES Eyes: PERRL/EOMI, pink conjunctivae - HEAD, EARS, NOSE, MOUTH & THROAT HENMT: normocephalic/atraumatic, moist mucous membranes. negative: angioedema - RESPIRATORY Respiratory: chest non-tender, lungs clear, normal breath sounds, no pleuratic chest pain, no respiratory distress, no accessory muscle use. negative: crackles, rales, rhonchi, stridor, wheezing - CARDIOVASCULAR Cardiovascular: normal peripheral pulses, no gallop, no JVD, no murmur, bradycardia. negative: regular rate, rhythm, no edema (EDEMA IN ANKLES), tachycardia - GASTROINTESTINAL (ABDOMEN) Abdominal Exam: normal bowel sounds, soft, no organomegaly, no pulsatile mass, tenderness. negative: non tender, distended - MUSCULOSKELETAL Extremity: tenderness (BOTH LOWER LEGS AND FEET). negative: erythema - SKIN Integumentary: normal color. negative: diaphoresis, ecchymosis - PSYCHIATRIC Psych/Mental Status: normal mood/affect, normal thought content, normal thought process, oriented x 3. negative: disoriented x 3, anxious, disheveled, depressed affect Progress - PLAN OF CARE/RESULTS Progress/Plan/Lab Results: Vital Signs - 8 hr 12/16/18 08:39 12/16/18 09:03 Temperature 97.8 F Pulse Rate 49 L 45 L Respiratory Rate 20 21 Blood Pressure 172/71 159/67 O2 Sat by Pulse Oximetry 97 98 Laboratory Results - last 24 hr 12/16/18 09:00 POC Glucose 441 H D Orders Category Date Time Status FSBS [Finger Stick Blood Sugar (ED)] Q1H Care 12/16/18 10:00 Active CBC WITH DIFF [HEME] Stat Lab 12/16/18 09:09 Ordered CK PROFILE [SP CHEM] Stat Lab 12/16/18 09:09 Ordered COMPREHENSIVE METABOLIC PANEL [CHEM] Stat Lab 12/16/18 09:17 Ordered Ketone [ACETONE SERUM] [CHEM] Stat Lab 12/16/18 09:11 Ordered LACTATE, PLASMA [CHEM] Stat Lab 12/16/18 09:11 Uncollected MAGNESIUM [CHEM] Stat Lab 12/16/18 09:17 Ordered PHOSPHORUS [CHEM] Stat Lab 12/16/18 09:09 Ordered TROPONIN T Stat Lab 12/16/18 09:09 Ordered UA NIMS W/REFLEX CULT PL [URINALYSIS] Stat Lab 12/16/18 09:09 Uncollected VENOUS BLOOD GAS [RESP] Routine Lab 12/16/18 09:11 Ordered Result Diagrams: 12/16/18 08:52 12/16/18 09:17 - REASSESSMENT Reassessment #1 Time Reassessed: 10:11 Status: unchanged (pH 7.2, BS 490, beginning DKA protocol, see orders/insulin drip. UA pending) - XRAY 1 XRAY: Bilateral XRAY Study: Chest Impression: See EMR Report (IMPRESSION: Negative exam. Electronically signed by Riaz George 12/16/2018 10:49 AM) - CONSULTS/PCP/HOSPITALIST Notification #1 *Consult/PCP/Hospitalist*: DR. HEART Time Discussed: 10:59 Consult Disposition: Admit Departure - Departure Date of Disposition Decision: 12/16/18 Time of Disposition Decision: 11:00 DIAGNOSIS: Hyperglycemia, Diabetes, DKA, type 2, Bradycardia Disposition: ADMITTED INPATIENT 09 Certified Medical Emergency: Emergent Condition: Fair Additional Freetext Instructions: ED Follow Up Instructions: You have been treated by a care provider in the Emergency Department. These instructions are being provided to you so you can have an understanding of how to care for yourself upon discharge. Upon discharge from the Emergency Department, you are responsible for making arrangements for follow-up care by a physician of your choice. Take all prescribed medications as directed. Return to the Emergency Department immediately for any new or worsening symptoms. You may call the Physician Referral phone number at [phone] to obtain a list of Physicians who are taking new patients. Referrals and Follow-Ups: Juan Carlos Covarrubias MD [Primary Care Provider] - - Critical Care Note This patient required my direct & personal management of CC.: No Attestation - Physician/ MONI Attestation Patient care was provided by Advanced Practice Provider:: No The physician spent face to face time with patient:: Yes Advanced Practice Provider documentation review:: Supervising physician onsite and consulted in the evaluation and care of this patient. The physician did have a face to face encounter with the patient. This chart was documented by the indicated scribe, (Susi Gavin, Edwin) and accurately reflects the services I performed and decisions made by me, Ephraim Talbert MD, as attested by the provider's signature.
[2018-12-16 11:12] LABS: CALCIUM 9.4 mg/dL (8.8-10.2); CREATININE 2.7 mg/dL (0.5-0.9); PHOSPHORUS 3.8 mg/dL (2.7-4.5)
[2018-12-16] MEDS: NS 1,000 ML IV SCH ×4 (11:16→18:04)
[2018-12-16 11:24] LABS: BILIRUBIN URINE NEGATIVE (NEGATIVE); BLOOD URINE NEGATIVE (NEGATIVE); CLARITY CLEAR (CLEAR); COLOR YELLOW; KETONE URINE NEGATIVE (NEGATIVE); LEUKOCYTES URINE NEGATIVE (NEGATIVE); NITRITE URINE NEGATIVE (NEGATIVE); PROTEIN URINE NEGATIVE (NEGATIVE); UROBILINOGEN URINE NORMAL
[2018-12-16 11:43] LABS: URINE EPITHELIAL CELLS <10 /HPF (<10); URINE RBC <10 /HPF (<10); URINE WBC <10 /HPF (<10)
[2018-12-16 11:44] LABS: URINE BACTERIA NEGATIVE /HFP; URINE SOURCE CLEAN CATCH
--- NOTE | 2018-12-16 12:18 | HISTORY AND PHYSICAL ---
PRIMARY CARE PHYSICIAN: Dr. Juan Carlos Covarrubias. CHIEF COMPLAINT: Increased blood sugar and weakness with extreme thirst. HISTORY OF PRESENTING ILLNESS: This is an 88-year-old female who presents to [facility] ER via EMS after the patient called her daughter this morning, and told her that she was not feeling well, was extremely thirsty, and could not get out of her chair due to weakness, and that her blood sugar was over 500. When she arrived to the emergency room, she had a blood sugar of 490, BUN of 69, creatinine 2.7, anion gap was 14, and potassium of 5.2. Her acetone level was negative but she is being admitted to the intensive care unit on the DKA protocol for further evaluation and treatment. PAST MEDICAL HISTORY: Atrial fibrillation, hypertension, hyperlipidemia, COPD, reflux, chronic kidney disease, gout, diabetes, history of peripheral neuropathy secondary to her diabetes, and history of CVA. PAST SURGICAL HISTORY: Hysterectomy, cholecystectomy, and cataract surgery. FAMILY HISTORY: Diabetes and COPD. SOCIAL HISTORY: She lives alone, and is and retired. Does not smoke, drink, or use illicit drugs. ALLERGIES: She has no known drug allergies. HOME MEDICATIONS: We will need to obtain a current list of home medications and restart those as appropriate. We will place an order for nursing to update and confirm home medications. LABORATORY DATA: White blood cell count of 5.36, hemoglobin 11.1, hematocrit 35.1, and platelets 177,000. Sodium 136, potassium 5.2, chloride 100, CO2 23, anion gap of 14, BUN of 69, creatinine 2.7, glucose 490, phosphorus 4.7, and magnesium was 2.3. Cardiac enzyme was negative. Plasma lactate of 1.0. Acetone level was negative. Chest x-ray showed a negative exam. REVIEW OF SYSTEMS: She denied any fever, chills, blurred vision, or dizziness. She had generalized weakness, increased thirst, increased blood sugar. Denied any abdominal pain, constipation, diarrhea, burning or hurting with urination. PHYSICAL EXAMINATION: VITAL SIGNS: On arrival, she had a temperature of 97.8 degrees a pulse of 49, respirations 20, blood pressure 172/71 and saturating 97% on room air. GENERAL: This is an 88-year-old female who is lying in the bed, and answers questions appropriately. HEENT: Normocephalic, atraumatic. Normal ENT inspection. Oropharynx and nares are clear. EYES: Pupils are equal, round, and reactive to light and accommodation. Extraocular movements are intact. NECK: Normal inspection. Normal range of motion. LUNGS: Clear to auscultation bilaterally with equal lung expansion and chest wall movement. HEART: Regular rate and rhythm. No murmurs, rubs, or gallops. ABDOMEN: Soft, nontender, and nondistended. Bowel sounds are present x4 quadrants. MUSCULOSKELETAL: She has 3/5 strength x4 extremities. Tenderness to both lower legs and feet. NEUROLOGICAL: The cranial nerves 2-12 appear grossly intact. ASSESSMENT: 1. DKA and known diabetes type 2 with hyperglycemia. 2. Bradycardia. 3. Gastroesophageal reflux disease. 4. Hypertension history of. PLAN: She will be admitted to the intensive care unit, and placed on the DKA protocol with insulin drip per protocol. Labs per the protocol. We need to update and confirm home medications. Further orders after seen by attending. Dictated by NOEMI Storey for Juan Carlos Covarrubias MD cc: NOEMI Storey MD
[2018-12-16] MEDS ORDERED: D5 1/2 NS 1,000 ML ONE (13:24)
[2018-12-16] MEDS: D5 1/2 NS 1,000 ML IV SCH (13:28)
[2018-12-16 16:22] LABS: CALCIUM 8.7 mg/dL (8.8-10.2); CREATININE 2.2 mg/dL (0.5-0.9); PHOSPHORUS 3.3 mg/dL (2.7-4.5); POTASSIUM 4.1 mmol/L (3.5-5.1)
[2018-12-16] MEDS ORDERED: BUPRENORPHINE AS ORDERED SCH (17:15)
--- NOTE | 2018-12-16 18:59 | HISTORY AND PHYSICAL ---
ADDENDUM: Patient seen and examined by myself. Full note dictated and discussed with nurse practitioner. Patient presented to the hospital with increased blood sugar. She is a very pleasant 88-year-old female with blood sugars over 500. She has a known history of atrial fibrillation, hypertension, as well as diabetes. We are going to admit her to the hospital, place her on insulin and IV fluids, follow her blood sugars. Further orders as needed. Please see full dictation. cc: Juan Carlos Covarrubias MD
[2018-12-16] MEDS ORDERED: APRESOLINE IV PRN (20:11)
[2018-12-16] MEDS ORDERED: HUMALOG (PARKWAY) SUBQ SCH (21:00)
[2018-12-16] MEDS: ELAVIL PO SCH (22:07)
[2018-12-16] MEDS: NEURONTIN PO SCH (22:07)
[2018-12-16] MEDS: KLOR-CON PO SCH (22:07)
[2018-12-16] MEDS: TYLENOL PO PRN (22:07)
[2018-12-16] MEDS: PATIENT'S OWN MED PO SCH (22:08)
[2018-12-16] MEDS: HUMALOG (PARKWAY) SUBQ SCH (22:08)
[2018-12-17] MEDS: HUMALOG (PARKWAY) SUBQ SCH ×6 (00:41→21:17)
[2018-12-17] MEDS: D5 1/2 NS 1,000 ML IV SCH ×2 (06:03→10:38)
[2018-12-17] MEDS: LINZESS PO SCH (06:13)
[2018-12-17] MEDS: PROTONIX PO SCH (06:14)
[2018-12-17 06:44] LABS: BASO# 0.01 X1000 (0.0-0.2); BASO% 0.2 % (0.0-0.8); EOS# 0.15 X1000 (0.0-0.7); EOS% 3.2 % (0.0-10.0); HEMATOCRIT 32.4 % (37.0-47.0); HEMOGLOBIN 10.4 g/dL (12.0-16.0); IMM GRAN# 0.01 X1000 (0.0-0.04); IMM GRAN% 0.2 % (0.0-0.5); LYMPH# 1.31 X1000 (1.2-3.4); LYMPH% 27.9 % (20.5-51.1); MCH 29.1 PG (27-31); MCHC 32.1 g/dL (33-37); MCV 90.5 FL (81-99); MONO# 0.48 X1000 (0.11-0.59); MONO% 10.2 % (1.7-9.3); NEUT# 2.73 X1000 (1.4-6.5); NEUT% 58.3 % (42.2-75.2); PLT 128 X1000 (130-400); RBC 3.58 XMIL (4.2-5.4); RDW 13.5 % (11.5-14.5); WBC 4.69 X1000 (4.8-10.8)
[2018-12-17 06:53] LABS: ALBUMIN 2.9 g/dL (3.5-5.0); CALCIUM 8.4 mg/dL (8.8-10.2); CREATININE 1.7 mg/dL (0.5-0.9); POTASSIUM 4.7 mmol/L (3.5-5.1); TOTAL BILIRUBIN 0.2 mg/dL (0.20-1.00); TOTAL PROTEIN 5.4 g/dL (6.3-8.3)
--- NOTE | 2018-12-17 07:28 | EKG Report ---
Test Performed on : 12/16/2018 7:16:08 PM Test Reason : bradycard Blood Pressure : / mmHG Vent. Rate : 046 BPM Atrial Rate : 046 BPM P-R Int : 174 ms QRS Dur : 078 ms QT Int : 512 ms P-R-T Axes : 250 028 -62 degrees QTc Int : 448 ms Unusual P axis, possible ectopic atrial bradycardia. T wave abnormality, consider lateral ischemia Abnormal ECG When compared with ECG of 04-JUN-2018 21:37, Ectopic atrial rhythm. has replaced Sinus rhythm. Confirmed by Jono Latham MD ([id number]) on 01/06/2019 3:22:43 PM
[2018-12-17 08:39] LABS: BE -4.5 mmoll (-2.0-2.0); HCO3-(ACT) 20.6 mmoll (22-27); PCO2(98.6) 49 mmHg (40-60); PO2(98.6) 30 mmHg (30-55); SAO2 59.3 % (40.0-85.0); pH(98.6) 7.27 (7.32-7.43)
[2018-12-17] MEDS: KLOR-CON PO SCH ×2 (09:05→20:17)
[2018-12-17] MEDS: ASPIRIN EC PO SCH (09:05)
[2018-12-17] MEDS: ZYLOPRIM PO SCH (09:05)
[2018-12-17] MEDS: COZAAR PO SCH (09:05)
[2018-12-17] MEDS: CALTRATE 600 + D PO SCH (09:05)
[2018-12-17] MEDS: LASIX PO SCH (09:05)
[2018-12-17] MEDS: SINEMET 25/100 PO PRN (12:00)
[2018-12-17] MEDS: ELAVIL PO SCH (20:18)
[2018-12-17] MEDS: PATIENT'S OWN MED PO SCH (20:18)
[2018-12-17] MEDS: NEURONTIN PO SCH (20:18)
--- NOTE | 2018-12-17 22:45 | PROGRESS NOTE ---
DATE: 12/17/2018 SUBJECTIVE: Patient notes that she is feeling okay. Denies any chest pain, palpitation. Denies any fevers or chills. Notes overall that she is feeling better. She is eating breakfast. PHYSICAL EXAMINATION: Vital Signs: Temperature 97.7, pulse 60, respiratory 18, BP 138/70. General: Patient is awake, alert. She is in no distress. HEENT: Normocephalic. Neck: Supple. Cardiovascular: Regular rate. Chest: Clear. Abdomen: Soft, nondistended. Extremities: Moves all extremities. ASSESSMENT: 1. Hyperglycemia, improved. 2. Bradycardia, improved. 3. Chronic kidney injury, stable. 4. Atrial fibrillation. 5. Hypertension. 6. Chronic obstructive pulmonary disease. PLAN: We will continue patient in the hospital. We are going to transition her from the ICU to the floor. Continue regular diet. Hopefully, she can discharge home soon. cc: Juan Carlos Covarrubias MD
[2018-12-17] MEDS: TYLENOL PO PRN (23:19)
[2018-12-18] MEDS: HUMALOG (PARKWAY) SUBQ SCH ×6 (00:50→21:20)
[2018-12-18] MEDS: LINZESS PO SCH (06:20)
[2018-12-18] MEDS: PROTONIX PO SCH (06:20)
[2018-12-18] MEDS: ZYLOPRIM PO SCH (10:20)
[2018-12-18] MEDS: ASPIRIN EC PO SCH (10:20)
[2018-12-18] MEDS: KLOR-CON PO SCH ×2 (10:21→21:21)
[2018-12-18] MEDS: LASIX PO SCH (10:21)
[2018-12-18] MEDS: CALTRATE 600 + D PO SCH (10:21)
[2018-12-18] MEDS: COZAAR PO SCH (10:21)
[2018-12-18] MEDS: SINEMET 25/100 PO PRN (10:24)
--- NOTE | 2018-12-18 18:01 | PROGRESS NOTE ---
DATE: 12/18/2018 SUBJECTIVE: The patient notes that she is feeling a lot better. Denies any fevers or chills. States she is starting to eat a little bit better. Denies any chest pain, palpitations. PHYSICAL EXAMINATION: vital signs: Temperature 98.9, pulse 81, respiratory rate 18, BP 127/77. General: The patient is awake, very pleasant. She is in no respiratory distress. HEENT: Normocephalic. Neck: Supple. Cardiovascular: Regular rate. Chest: Clear and unlabored. Abdomen: Soft, nondistended. Extremities: Moves all extremities although generalized weakness. ASSESSMENT: 1. Adult failure to thrive with generalized weakness. 2. Diabetic ketoacidosis, resolved. 3. Diabetes with hyperglycemia, stable. 4. Chronic kidney disease. 5. Bradycardia, resolved. 6. Hypertension. PLAN: We will continue the patient in the hospital. Continue to follow. Further orders as needed. Expect that she will need rehab on discharge. We have not restarted her home diabetic medications yet as her blood sugars have actually been controlled. Further orders as needed. cc: Juan Carlos Covarrubias MD
[2018-12-18] MEDS: ELAVIL PO SCH (21:21)
[2018-12-18] MEDS: NEURONTIN PO SCH (21:21)
[2018-12-18] MEDS: PATIENT'S OWN MED PO SCH (21:21)
[2018-12-19] MEDS: HUMALOG (PARKWAY) SUBQ SCH ×6 (01:21→21:13)
[2018-12-19] MEDS: LINZESS PO SCH (06:06)
[2018-12-19] MEDS: PROTONIX PO SCH (06:06)
[2018-12-19] MEDS ORDERED: ZAROXOLYN PO SCH (09:00)
[2018-12-19] MEDS: ASPIRIN EC PO SCH (10:48)
[2018-12-19] MEDS: ZYLOPRIM PO SCH (10:49)
[2018-12-19] MEDS: LASIX PO SCH (10:49)
[2018-12-19] MEDS: KLOR-CON PO SCH ×2 (10:49→21:13)
[2018-12-19] MEDS: COZAAR PO SCH (10:50)
[2018-12-19] MEDS: CALTRATE 600 + D PO SCH (10:50)
[2018-12-19] MEDS ORDERED: HUMALOG (PARKWAY) SUBQ ONE (14:27)
--- NOTE | 2018-12-19 15:33 | PROGRESS NOTE ---
DATE: 12/19/2018 SUBJECTIVE: Patient notes that she feels overall better. However, she is still having some pain in bilateral lower extremities that she is unclear as to when it started. Denies any injury. OBJECTIVE: Vital signs: Temperature 98, pulse 67, respiratory rate 18, BP 101/46. General: The patient is very pleasant. She is in no distress. HEENT: Normocephalic. Neck: Supple. Cardiovascular: Regular rate. Chest: Clear. Abdomen: Soft. ASSESSMENT: 1. Diabetes. Blood sugars have started drifting back up. She did have low blood sugars for several days. We are going to restart her home insulin. Continue sliding scale. 2. Chronic kidney disease. 3. Advanced age. 4. Hypertension. PLAN: Hopefully the patient will continue to improve and can be discharged to rehab tomorrow. cc: Juan Carlos Covarrubias MD
[2018-12-19] MEDS ORDERED: LANTUS INSULIN SUBQ SCH (21:00)
[2018-12-19] MEDS: NEURONTIN PO SCH (21:12)
[2018-12-19] MEDS: PATIENT'S OWN MED PO SCH (21:13)
[2018-12-19] MEDS: ELAVIL PO SCH (21:13)
[2018-12-20] MEDS: HUMALOG (PARKWAY) SUBQ SCH ×4 (00:57→13:39)
[2018-12-20] MEDS: PROTONIX PO SCH (06:06)
[2018-12-20] MEDS: LINZESS PO SCH (06:06)
[2018-12-20] MEDS: CALTRATE 600 + D PO SCH (09:34)
[2018-12-20] MEDS: ZYLOPRIM PO SCH (09:35)
[2018-12-20] MEDS: ASPIRIN EC PO SCH (09:35)
[2018-12-20] MEDS: KLOR-CON PO SCH (09:35)
[2018-12-20] MEDS: LASIX PO SCH (09:35)
[2018-12-20] MEDS: COZAAR PO SCH (09:35)
[2018-12-20 12:43] VITALS: BP 116/51
--- NOTE | 2018-12-20 12:53 | DISCHARGE SUMMARY ---
ADMISSION DATE: 12/16/2018 DISCHARGE DATE: 12/20/2018 DIAGNOSES: 1. Diabetic ketoacidosis. resolved. 2. Diabetes mellitus type 2. 3. Bradycardia, resolved. 4. Gastroesophageal reflux disease. 5. History of atrial fibrillation. 6. Chronic kidney disease. 7. History of peripheral neuropathy. 8. Advanced age. DIAGNOSTICS: Chest x-ray revealed lungs are well expanded, heart is not enlarged. Vessels are not distended. There are no infiltrates, no effusion identified. Moderate- sized hiatal hernia. HOSPITAL COURSE: Ms. Ayon presented to the emergency room complaining of increased blood sugar, weakness and thirst. She was found to be in DKA. She was admitted to ICU and placed on DKA protocol. She has since been transitioned back to her home medications. She was bradycardic with heart rates in the 40 - 50 range on arrival to the ER. Heart rates have increased, and have remained in the 60 to 70 range over the last 48 hours. The patient states that she feels a lot better. She started to have some appetite and feel a little better, and thankfully she is ready for discharge to rehab. DISCHARGE VITAL SIGNS: Blood pressure is 116/57 with a heart rate of 66, respirations are 20. Temperature is 98.2 degrees, with room air saturations 100%. DISCHARGE PHYSICAL EXAMINATION: Cardiovascular: Regular rate and rhythm. S1 and S2 are appreciated. She does have some bilateral lower extremity edema. Calves are nontender. Peripheral pulses palpable x4 extremities. Pulmonary: Breath sounds are clear with no increased work of breathing noted. Gastrointestinal: Abdomen is soft, nontender, nondistended. Bowel sounds in all 4 quadrants. : No CVA or suprapubic tenderness. Neurologic: She is alert and oriented. Skin: Warm and dry. DISCHARGE MEDICATIONS: 1. NovoLog FlexPen 3 units subcutaneously t.i.d. 2. Gabapentin 300 mg p.o. at bedtime. 3. Buprenorphine 5 mg patch 1 weekly. 4. Potassium chloride 20 mEq 1 p.o. b.i.d. 5. Protonix 40 mg p.o. daily. 6. Zaroxolyn 5 mg p.o. every 7 days. 7. Cozaar 25 mg p.o. daily. 8. Linzess 290 mcg p.o. daily. 9. Lantus insulin 20 units subcutaneously at bedtime. 10. Sinemet 25/100 one p.o. daily p.r.n. muscle cramps. 11. Calcium 500 Plus D 1 p.o. daily. 12. Aspirin 81 mg p.o. daily. 13. Elavil 10 mg p.o. at bedtime. 14. Allopurinol 100 mg p.o. daily. FOLLOWUP: Dr. Juan Carlos Covarrubias, her primary care provider, in 2 to 3 weeks after discharge from rehab. She is being discharged to rehab in stable condition with family members present. TIME SPENT: This is a greater than 30 minute discharge. Dictated by NOEMI Denton for Juan Carlos Covarrubias MD cc: NOEMI Denton MD MTDD
--- NOTE | 2018-12-21 06:18 | DISCHARGE SUMMARY ---
ADMISSION DATE: 12/16/2018 DISCHARGE DATE: 12/20/2018 ADDENDUM: Patient seen and examined by myself. Full note dictated and discussed with nurse practitioner. On discharge, patient is awake and alert. She is in no distress. The patient will be discharged to rehab. She will be restarted on her home medications while there. Please see full note. cc: Juan Carlos Covarrubias MD
[2018-12-23] MEDS ORDERED: ZAROXOLYN PO SCH (09:00)
== END 2018-12-20 15:24 | DRG 639 ==
LOC: P.ED 08:40 → P.ICU 12:09 → P.MEDSURG 12-17 18:34
PROVIDERS: ADMIT Family Medicine; ATTEND Family Medicine

== ENCOUNTER 2019-03-28 08:47 | Inpatient (IN) ==
[2019-03-28] MEDS ORDERED: NORCO-5 PO ONE ×2 (09:17→13:07)
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
[2019-03-28 09:49] LABS: BASO# 0.03 X1000 (0.0-0.2); BASO% 0.4 % (0.0-0.8); EOS# 0.17 X1000 (0.0-0.7); EOS% 2.2 % (0.0-10.0); HEMATOCRIT 35.7 % (37.0-47.0); HEMOGLOBIN 11.6 g/dL (12.0-16.0); IMM GRAN# 0.01 X1000 (0.0-0.04); IMM GRAN% 0.1 % (0.0-0.5); LYMPH# 2.69 X1000 (1.2-3.4); LYMPH% 35.2 % (20.5-51.1); MCH 27.9 PG (27-31); MCHC 32.5 g/dL (33-37); MCV 85.8 FL (81-99); MONO# 0.68 X1000 (0.11-0.59); MONO% 8.9 % (1.7-9.3); NEUT# 4.07 X1000 (1.4-6.5); NEUT% 53.2 % (42.2-75.2); PLT 195 X1000 (130-400); RBC 4.16 XMIL (4.2-5.4); RDW 13.6 % (11.5-14.5); WBC 7.65 X1000 (4.8-10.8)
[2019-03-28 10:01] LABS: INR 1.02; PROTIME 13.9 Seconds (11.0-16.0)
[2019-03-28 10:06] LABS: ALBUMIN 4.7 g/dL (3.5-5.0); CALCIUM 10.2 mg/dL (8.8-10.2); CREATININE 3.2 mg/dL (0.5-0.9); POTASSIUM 4.6 mmol/L (3.5-5.1); TOTAL BILIRUBIN 0.2 mg/dL (0.20-1.00); TOTAL PROTEIN 7.6 g/dL (6.3-8.3)
[2019-03-28 11:18] LABS: BE -5.3 mmoll (-3.0-3.0); BLOOD TYPE ARTERIAL; HCO3-(ACT) 20.7 mmoll (20.0-26.0); METHB 1.2 % (0.0-1.5); O2(CT) 15.2 mL/dL (15.0-23.0); O2HB 94.4 % (95.0-99.0); PCO2(98.6) 41 mmHg (35-45); PO2(98.6) 76 mmHg (60-100); SAMPLE BLOOD; SAO2 97.5 % (95.0-100.0); THB 11.4 g/dL (11.5-17.4); pH(98.6) 7.31 (7.35-7.45)
[2019-03-28 11:22] LABS: ALLEN TEST YES; MODALITY ROOM AIR
--- NOTE | 2019-03-28 11:44 | EKG Report ---
Test Performed on : 03/28/2019 10:28:09 AM Test Reason : ER Blood Pressure : / mmHG Vent. Rate : 057 BPM Atrial Rate : 057 BPM P-R Int : 120 ms QRS Dur : 080 ms QT Int : 448 ms P-R-T Axes : -19 -02 -81 degrees QTc Int : 436 ms Sinus bradycardia. T wave abnormality, consider inferior ischemia T wave abnormality, consider anterolateral ischemia Abnormal ECG When compared with ECG of 16-DEC-2018 19:16, Sinus rhythm. has replaced Ectopic atrial rhythm. Unconfirmed Result
--- NOTE | 2019-03-28 11:48 | Vascular Study Report ---
EXAM: Venous U/S Bilateral Legs - 03/28/2019 HISTORY: bilateral leg pain/ R>L TECHNIQUE: Bilateral lower extremity Doppler venous ultrasound COMPARISON: None. FINDINGS: The deep veins of the bilateral lower extremities demonstrate flow and compressibility. There are no filling defects identified. IMPRESSION: No evidence of deep venous thrombosis in either lower extremity. Electronically signed by Damon Ramos 03/28/2019 11:45 AM
[2019-03-28] MEDS ORDERED: NS 1,000 ML IV ONE (12:02)
[2019-03-28 12:35] LABS: URINE SOURCE CLEAN CATCH
[2019-03-28 12:43] LABS: BILIRUBIN URINE NEGATIVE (NEGATIVE); BLOOD URINE TRACE (NEGATIVE); COLOR YELLOW; GLUCOSE URINE >1000 mg/dL (NEGATIVE); KETONE URINE NEGATIVE (NEGATIVE); LEUKOCYTES URINE LARGE (NEGATIVE); NITRITE URINE NEGATIVE (NEGATIVE); PH URINE 5.5; PROTEIN URINE NEGATIVE (NEGATIVE); SP GRAVITY URINE 1.013; TURBIDITY URINE HAZY (CLEAR); UROBILINOGEN URINE NORMAL (NORMAL)
[2019-03-28 12:45] LABS: UR EPITHELIAL CELLS <10 /HPF (<10); URINE BACTERIA NEGATIVE /HPF; URINE RBC <10 /HPF (<10); URINE WBC TNTC /HPF (<10)
[2019-03-28] MEDS ORDERED: ZOFRAN IV PRN (14:11)
[2019-03-28] MEDS ORDERED: TYLENOL PO PRN (14:11)
[2019-03-28] MEDS: ROCEPHIN 1 GM in NS 50 ML IV SCH (14:30)
[2019-03-28] MEDS: NS 1,000 ML IV SCH (16:30)
[2019-03-29] MEDS: NS 1,000 ML IV SCH (04:57)
[2019-03-29 06:41] LABS: HEMATOCRIT 30.8 % (37.0-47.0); HEMOGLOBIN 9.6 g/dL (12.0-16.0); MCH 27.3 PG (27-31); MCHC 31.2 g/dL (33-37); MCV 87.5 FL (81-99); PLT 151 X1000 (130-400); RBC 3.52 XMIL (4.2-5.4); RDW 13.6 % (11.5-14.5); WBC 4.71 X1000 (4.8-10.8)
[2019-03-29 07:09] LABS: AGAP 11; ALBUMIN 3.7 g/dL (3.5-5.0); ALKALINE PHOSPHATASE 142 U/L (32-104); BUN 71 mg/dL (8-22); CALCIUM 9.3 mg/dL (8.8-10.2); CHLORIDE 107 mmol/L (98-107); COSMO 316; CREATININE 2.5 mg/dL (0.5-0.9); ESTIMATED GFR 18; GOT 9 U/L (10-30); GPT < 5 U/L (10-36); MAGNESIUM 2.1 mg/dL (1.5-2.7); POTASSIUM 4.9 mmol/L (3.5-5.1); SODIUM 139 mmol/L (136-145); TCO2 21 mmol/L (25-35); TOTAL BILIRUBIN < 0.15 mg/dL (0.20-1.00); TOTAL PROTEIN 5.5 g/dL (6.3-8.3)
[2019-03-29 07:11] LABS: GLUCOSE 414 mg/dL (70-104)
[2019-03-29] MEDS ORDERED: ZAROXOLYN PO PRN (07:11)
[2019-03-29] MEDS: PROTONIX PO SCH (08:38)
[2019-03-29] MEDS: ASPIRIN EC PO SCH (08:38)
[2019-03-29] MEDS: KLOR-CON PO SCH ×2 (08:38→22:43)
[2019-03-29] MEDS: ZYLOPRIM PO SCH (08:38)
[2019-03-29] MEDS: COZAAR PO SCH (08:38)
[2019-03-29] MEDS: KEFLEX PO SCH ×2 (08:38→22:43)
[2019-03-29] MEDS: LASIX PO SCH (08:38)
[2019-03-29] MEDS: HUMALOG (PARKWAY) SUBQ SCH ×7 (08:39→22:45)
[2019-03-29] MEDS: CALTRATE 600 + D PO SCH (08:39)
[2019-03-29] MEDS: HYDROCHLOROTHIAZIDE PO SCH (08:39)
[2019-03-29] MEDS: TYLENOL PO PRN (11:53)
[2019-03-29] MEDS: NORCO-7.5 PO PRN (13:18)
[2019-03-29] MEDS: ROCEPHIN 1 GM in NS 50 ML IV SCH (15:04)
--- NOTE | 2019-03-29 21:17 | PROGRESS NOTE ---
DATE: 03/29/2019 SUBJECTIVE: Patient notes that she is feeling okay. She does state that she is drinking a little bit better. Denies any fevers or chills. PHYSICAL EXAMINATION: Vital Signs: Reviewed. She is awake and alert. She is afebrile. Blood pressure is stable. Oxygen is 95% on room air. General: Patient is awake, alert, very pleasant. She is in no respiratory distress. HEENT: Normocephalic. Neck: Supple. Cardiovascular: Regular rate. Chest: Clear, nonlabored. Abdomen: Soft, nondistended. Extremities: Moves all extremities. Neurologic: No changes. ASSESSMENT: 1. Acute renal failure. Improved. Creatinine is down from 3.2 to 2.5. 2. Adult failure to thrive. 3. Decreased oral intake. 4. Urinary tract infection. Culture and sensitivity are still pending. PLAN: We are going to continue antibiotics. We are going to try and stop her IV fluids, recheck her labs in the morning, and see how she does. Hopefully, that will improve and she can be discharged home. cc: Juan Carlos Covarrubias MD
[2019-03-29] MEDS: NEURONTIN PO SCH (22:43)
[2019-03-29] MEDS: ELAVIL PO SCH (22:44)
[2019-03-29] MEDS: LANTUS INSULIN SUBQ SCH (22:44)
[2019-03-30 06:04] LABS: HEMATOCRIT 32.5 % (37.0-47.0); HEMOGLOBIN 9.9 g/dL (12.0-16.0); MCH 26.9 PG (27-31); MCHC 30.5 g/dL (33-37); MCV 88.3 FL (81-99); PLT 132 X1000 (130-400); RBC 3.68 XMIL (4.2-5.4); RDW 13.8 % (11.5-14.5); WBC 6.34 X1000 (4.8-10.8)
[2019-03-30 06:25] LABS: AGAP 11; ALBUMIN 3.3 g/dL (3.5-5.0); ALKALINE PHOSPHATASE 113 U/L (32-104); BUN 54 mg/dL (8-22); CALCIUM 9.5 mg/dL (8.8-10.2); CHLORIDE 107 mmol/L (98-107); COSMO 293; ESTIMATED GFR 24; GLUCOSE 147 mg/dL (70-104); GOT 13 U/L (10-30); GPT 5 U/L (10-36); MAGNESIUM 1.9 mg/dL (1.5-2.7); POTASSIUM 4.9 mmol/L (3.5-5.1); SODIUM 138 mmol/L (136-145); TCO2 20 mmol/L (25-35); TOTAL BILIRUBIN < 0.15 mg/dL (0.20-1.00); TOTAL PROTEIN 5.8 g/dL (6.3-8.3)
[2019-03-30] MEDS: PROTONIX PO SCH (07:01)
[2019-03-30] MEDS: HUMALOG (PARKWAY) SUBQ SCH ×7 (07:01→20:45)
[2019-03-30] MEDS: LASIX PO SCH (08:42)
[2019-03-30] MEDS: ASPIRIN EC PO SCH (08:42)
[2019-03-30] MEDS: KEFLEX PO SCH ×2 (08:42→20:38)
[2019-03-30] MEDS: KLOR-CON PO SCH ×2 (08:42→20:38)
[2019-03-30] MEDS: HYDROCHLOROTHIAZIDE PO SCH (08:42)
[2019-03-30] MEDS: ZYLOPRIM PO SCH (08:43)
[2019-03-30] MEDS: COZAAR PO SCH (08:43)
[2019-03-30] MEDS: CALTRATE 600 + D PO SCH (08:43)
--- NOTE | 2019-03-30 11:48 | PROGRESS NOTE ---
DATE: 03/30/2019 SUBJECTIVE: The patient notes that she is feeling better. She is still having difficulty swallowing. PHYSICAL EXAMINATION: General: She is awake, alert. Vital Signs: Reviewed. She is afebrile. Temperature 98 degrees, pulse 69, respiratory rate 20, BP 132/70. HEENT: Normocephalic. Neck: Supple. Cardiovascular: Regular rate. Chest: Clear. Abdomen: Soft, nondistended. Extremities: Moves all extremities, although generalized weakness. ASSESSMENT: 1. Acute on chronic renal failure. Creatinine is down from 3.2 to 2.0. 2. Hyperglycemia. 3. Adult failure to thrive with generalized weakness. 4. Diabetes. 5. Hypertension. PLAN: We are going to continue the patient in the hospital. Continue to follow. Will get Physical Therapy involved. Medically, she is stable for home, but currently she is still too weak to be able to discharge. Will continue to follow. cc: Juan Carlos Covarrubias MD
[2019-03-30] MEDS: ELAVIL PO SCH (20:38)
[2019-03-30] MEDS: NEURONTIN PO SCH (20:38)
[2019-03-30] MEDS: OMNICEF PO SCH (20:39)
[2019-03-30] MEDS: LANTUS INSULIN SUBQ SCH (20:45)
[2019-03-31] MEDS: HUMALOG (PARKWAY) SUBQ SCH ×6 (06:46→21:29)
[2019-03-31] MEDS: PROTONIX PO SCH (06:46)
[2019-03-31] MEDS: KLOR-CON PO SCH ×2 (08:46→21:28)
[2019-03-31] MEDS: LASIX PO SCH (08:46)
[2019-03-31] MEDS: OMNICEF PO SCH ×2 (08:46→21:28)
[2019-03-31] MEDS: ASPIRIN EC PO SCH (08:46)
[2019-03-31] MEDS: ZYLOPRIM PO SCH (08:47)
[2019-03-31] MEDS: HYDROCHLOROTHIAZIDE PO SCH (08:47)
[2019-03-31] MEDS: COZAAR PO SCH (08:47)
[2019-03-31] MEDS: CALTRATE 600 + D PO SCH (08:48)
--- NOTE | 2019-03-31 15:54 | PROGRESS NOTE ---
DATE: 03/31/2019 SUBJECTIVE: Patient is upset that her meals have been changed to pureed per the recommendation of Speech. She notes that she eats regular food at home and states she is going to eat regular food when she gets back home. Otherwise, she denies any cough, congestion. Denies any shortness of breath. PHYSICAL EXAMINATION: Vital Signs: Reviewed. Temperature 98.3 degrees, pulse 65, respiratory rate 18, BP 137/52. General: Patient is awake, she is in no respiratory distress. HEENT: Normocephalic. Neck: Supple. Cardiovascular: Regular rate. Chest: Clear. Abdomen: Soft. Extremities: Moves all extremities. Neurologic: No changes. ASSESSMENT AND PLAN: 1. Acute renal failure, improved. Creatinine is down to 2.0. 2. Dysphagia. Given that patient is going to eat a regular diet at home per her own insistence, we are actually going to change her to a regular diet currently and watch her in the hospital overnight to see how she does. Discussed with her that it is in her best interest to eat a pureed diet, but she declines that discussion. cc: Juan Carlos Covarrubias MD
[2019-03-31] MEDS: NEURONTIN PO SCH (21:28)
[2019-03-31] MEDS: ELAVIL PO SCH (21:28)
[2019-03-31] MEDS: LANTUS INSULIN SUBQ SCH (21:29)
[2019-04-01] MEDS: PROTONIX PO SCH (06:11)
[2019-04-01] MEDS: NORCO-7.5 PO PRN ×2 (06:21→16:42)
[2019-04-01] MEDS: HUMALOG (PARKWAY) SUBQ SCH ×6 (06:21→17:51)
[2019-04-01] MEDS: COZAAR PO SCH (08:20)
[2019-04-01] MEDS: OMNICEF PO SCH ×2 (08:20→20:41)
[2019-04-01] MEDS: LASIX PO SCH (08:20)
[2019-04-01] MEDS: ZYLOPRIM PO SCH (08:21)
[2019-04-01] MEDS: ASPIRIN EC PO SCH (08:21)
[2019-04-01] MEDS: HYDROCHLOROTHIAZIDE PO SCH (08:21)
[2019-04-01] MEDS: CALTRATE 600 + D PO SCH (08:21)
[2019-04-01] MEDS: KLOR-CON PO SCH ×2 (08:21→20:41)
--- NOTE | 2019-04-01 15:41 | PROGRESS NOTE ---
DATE: 04/01/2019 SUBJECTIVE: Patient states that she did okay eating yesterday. Denies any fevers. PHYSICAL EXAMINATION: Vital Signs: Reviewed. General: She is awake, alert. She is lying flatly in the bed. HEENT: Normocephalic. Neck: Supple. Cardiovascular: Regular rate. Chest: Clear. Nonlabored. No crackles. Abdomen: Soft. Nondistended. Extremities: Moves all extremities. ASSESSMENT: 1. Dysphagia. 2. Nausea, vomiting. 3. Adult failure to thrive with generalized weakness. 4. Acute on chronic renal failure. 5. Hypertension. 6. Hypoglycemia iatrogenically induced from her insulin for her diabetes. PLAN: We will continue patient in the hospital because her blood sugars were low. She has still not really been eating and drinking well. We are going to decrease her insulin. We will not restart IV fluids today. We will see how she does. Recheck her kidney function in the morning. Again discussed with her that she may need to go across town to [facility] for esophageal dilatation. cc: Juan Carlos Covarrubias MD
--- NOTE | 2019-04-01 15:58 | HISTORY AND PHYSICAL ---
CHIEF COMPLAINT: Generalized fatigue. HISTORY OF PRESENT ILLNESS: The patient is an 88-year-old female who presented to [facility]'s ER, noted that she was having leg pain, mainly left leg pain. She was fatigued, unable to walk. She felt bad. She had not been eating and drinking well. SOCIAL HISTORY: Patient is an 88-year-old female who lives at home with her family. She is retired. Does not smoke, drink, or use illicit substances. ALLERGIES: No known drug allergies. MEDICATIONS: Desipramine 10 mg at bedtime, Lasix 40, allopurinol, aspirin, Sinemet 25/100, Linzess 290, Protonix, insulin. REVIEW OF SYSTEMS: As noted above. Patient notes that she has been getting choked. She denies any fevers, chills. Denies any dysuria, frequency, or urgency. Denies constipation or melena. She does have occasional diarrhea and has pain in her legs. States she generally does not feel well. She has been fatigued, having difficulty ambulating. PAST MEDICAL HISTORY: Significant for atrial fibrillation, hypertension, hyperlipidemia, asthma, GERD, she has chronic kidney disease, arthritis, gout, history of CVA, has diabetes with peripheral neuropathy, history of anemia. SURGICAL HISTORY: She has had a hysterectomy, cholecystectomy and cataract surgery. FAMILY HISTORY: Noncontributory. PHYSICAL EXAMINATION: VITAL SIGNS: Reviewed. Temperature 97.8 degrees, pulse 77, respiratory rate 18, blood pressure 146/75, saturating 98% on room air. GENERAL: Patient is awake, alert, currently in no respiratory distress. She complains immensely when touching her left calf. HEENT: Normocephalic. NECK: Supple. CARDIOVASCULAR: Regular rate. CHEST: Clear. Nonlabored. ABDOMEN: Soft, nondistended, nontender. EXTREMITIES: She does move all extremities. NEUROLOGIC: No focal changes from previous exams. ASSESSMENT: 1. Hypertension. 2. Acute renal failure. Creatinine is 3.2, typical baseline 1.6 to 2.0 3. Diabetes with mild hyperglycemia at 181. 4. Metabolic acidosis. 5. Volume depletion. 6. Diabetes. PLAN: We are going to admit patient to the hospital. IV fluids, pain control and will follow. We will restart her home medications when doses can be verified. cc: Juan Carlos Covarrubias MD
[2019-04-01] MEDS ORDERED: PRILOSEC PO ONE (20:23)
[2019-04-01] MEDS: ELAVIL PO SCH (20:41)
[2019-04-01] MEDS: NEURONTIN PO SCH (20:41)
[2019-04-01] MEDS: LANTUS INSULIN SUBQ SCH (20:41)
[2019-04-02] MEDS: HUMALOG (PARKWAY) SUBQ SCH ×8 (02:30→21:28)
[2019-04-02] MEDS: PROTONIX PO SCH (06:16)
[2019-04-02] MEDS: OMNICEF PO SCH ×2 (09:07→21:21)
[2019-04-02] MEDS: KLOR-CON PO SCH ×2 (09:07→21:22)
[2019-04-02] MEDS: LASIX PO SCH (09:07)
[2019-04-02] MEDS: COZAAR PO SCH (09:07)
[2019-04-02] MEDS: ZYLOPRIM PO SCH (09:07)
[2019-04-02] MEDS: HYDROCHLOROTHIAZIDE PO SCH (09:08)
[2019-04-02] MEDS: CALTRATE 600 + D PO SCH (09:08)
[2019-04-02] MEDS: ASPIRIN EC PO SCH (09:08)
--- NOTE | 2019-04-02 12:41 | PROGRESS NOTE ---
DATE: 04/02/2019 SUBJECTIVE: Patient notes that she does not feel well this morning. She did not eat. Her blood sugars are actually low. PHYSICAL EXAMINATION: Vital Signs: Reviewed: She is awake, alert, oriented. She is in no respiratory distress. HEENT: Normocephalic. Neck: Supple. Cardiovascular: Regular rate. Chest: Clear. Abdomen: Soft. Extremities: Moves all extremities although generalized weakness. ASSESSMENT: 1. Generalized weakness. 2. Diabetes with frequent episodes of hypoglycemia due to frequent changes in her diet. She was actually admitted with hyperglycemia due to her diet at home. Her blood sugars have been low here. We are going to continue to decrease her insulin and will follow. PLAN: We will continue patient in the hospital, continue physical therapy. Expect that she will need rehab on discharge. cc: Juan Carlos Covarrubias MD
[2019-04-02] MEDS: TYLENOL PO PRN (16:33)
[2019-04-02] MEDS ORDERED: LANTUS INSULIN SUBQ SCH (21:00)
[2019-04-02] MEDS: NEURONTIN PO SCH (21:21)
[2019-04-02] MEDS: ELAVIL PO SCH (21:21)
[2019-04-03] MEDS: PROTONIX PO SCH (07:06)
[2019-04-03] MEDS: HUMALOG (PARKWAY) SUBQ SCH ×5 (07:06→22:01)
[2019-04-03] MEDS: ZYLOPRIM PO SCH (08:55)
[2019-04-03] MEDS: COZAAR PO SCH (08:55)
[2019-04-03] MEDS: HYDROCHLOROTHIAZIDE PO SCH (08:55)
[2019-04-03] MEDS: ASPIRIN EC PO SCH (08:56)
[2019-04-03] MEDS: KLOR-CON PO SCH ×2 (08:56→21:56)
[2019-04-03] MEDS: CALTRATE 600 + D PO SCH (08:56)
[2019-04-03] MEDS: OMNICEF PO SCH ×2 (08:56→21:56)
[2019-04-03] MEDS: LASIX PO SCH (08:56)
[2019-04-03] MEDS ORDERED: ROBITUSSIN PO PRN (10:55)
--- NOTE | 2019-04-03 12:00 | PROGRESS NOTE ---
DATE: 04/03/2019 SUBJECTIVE: The patient notes that she is feeling better. However, she still is unable to get out of bed without assistance. She frequently feels hypoglycemic when her blood sugars drop into the 100 to 150 range. PHYSICAL EXAMINATION: Vital Signs: Reviewed. General: She is awake, alert. She is in no distress. HEENT: Normocephalic. Neck: Supple. Cardiovascular: Regular rate. Chest: Clear. Abdomen: Soft. Extremities: Moves all extremities. ASSESSMENT: 1. Diabetes. Given her age, we certainly need to accept blood sugars being a little elevated in the 150 to 180s range. 2. Generalized weakness with adult failure to thrive. 3. Dysphagia. The patient denies any current symptoms while she is eating a regular diet. PLAN: We are going to continue physical therapy. Will get Pharmacy Tech involved in the a.m., and discharge planning. cc: Juan Carlos Covarrubias MD
[2019-04-03] MEDS: LANTUS INSULIN SUBQ SCH (21:56)
[2019-04-03] MEDS: NEURONTIN PO SCH (21:56)
[2019-04-03] MEDS: ELAVIL PO SCH (21:56)
[2019-04-04] MEDS: PROTONIX PO SCH (06:00)
[2019-04-04] MEDS: HUMALOG (PARKWAY) SUBQ SCH ×4 (06:00→21:44)
[2019-04-04] MEDS: COZAAR PO SCH (10:12)
[2019-04-04] MEDS: OMNICEF PO SCH ×2 (10:12→21:45)
[2019-04-04] MEDS: CALTRATE 600 + D PO SCH (10:12)
[2019-04-04] MEDS: ZYLOPRIM PO SCH (10:12)
[2019-04-04] MEDS: HYDROCHLOROTHIAZIDE PO SCH (10:12)
[2019-04-04] MEDS: KLOR-CON PO SCH ×2 (10:12→21:45)
[2019-04-04] MEDS: ASPIRIN EC PO SCH (10:12)
[2019-04-04] MEDS: LASIX PO SCH (10:12)
[2019-04-04] MEDS: ELAVIL PO SCH (21:45)
[2019-04-04] MEDS: NEURONTIN PO SCH (21:45)
[2019-04-04] MEDS: LANTUS INSULIN SUBQ SCH (21:45)
--- NOTE | 2019-04-05 00:55 | PROGRESS NOTE ---
DATE: 04/04/2019 SUBJECTIVE: The patient notes that she is feeling better. She denies any trouble swallowing. However, states that she lives at home alone and cannot go home alone due to her current physical maladies. OBJECTIVE: Vital Signs: Reviewed. General: She is awake, alert. She is in no respiratory distress. Very pleasant elderly female. HEENT: Normocephalic. Neck: Supple. Cardiovascular: Regular rate. Chest: Clear. Abdomen: Soft. Extremities: Moves all extremities. Neurologic: No changes. ASSESSMENT: 1. Nausea and vomiting. 2. Frequent falls. 3. Hypoglycemia. 4. Diabetes with hyperglycemia. 5. Adult failure to thrive. 6. Chronic dysphagia. PLAN: We are going to continue the patient in the hospital, get Physical Therapy involved. Hopefully she can transition to rehabilitation soon. cc: Juan Carlos Covarrubias MD
[2019-04-05 05:32] VITALS: BP 118/68
[2019-04-05] MEDS: HUMALOG (PARKWAY) SUBQ SCH ×2 (06:22→12:38)
[2019-04-05] MEDS: PROTONIX PO SCH (06:22)
[2019-04-05] MEDS: NORCO-7.5 PO PRN (06:23)
--- NOTE | 2019-04-05 09:02 | DISCHARGE SUMMARY ---
ADMISSION DATE: 03/28/2019 DISCHARGE DATE: 04/05/2019 DISCHARGE DIAGNOSES: 1. Adult failure to thrive with frequent falls. 2. Generalized weakness. 3. Diabetes with poor control, but difficult due to her age. 4. Chronic dysphagia, currently stable. 5. Parkinsonism. 6. Reflux. 7. Chronic constipation. 8. Hyperlipidemia. 9. Chronic atrial fibrillation. 10. Chronic kidney disease. 11. Gout. CONSULTATIONS: None. PROCEDURES: None. BRIEF HOSPITAL COURSE: The patient is an 88-year-old female who presented to the hospital with coughing, congestion, generalized fatigue, and frequent falls. She initially noted that she had some dysphagia, but thankfully that improved back to her baseline. She declined going to [facility] for EGD and possible dilatation of her esophagus. Medically, she improved. Her creatinine decreased back to her baseline at 1.6 to 2.0 from her admission at 3.2. Blood sugars remain difficult to control with blood sugars typically in the upper 100s to low 200s. Given her age and her frequency with hypoglycemia down into the 70s and 80s, this has to be acceptable. Unfortunately, although she improved medically, she still continued to be very weak and having difficulty ambulating. She lives at home alone, and therefore was unable to take care of herself. Therefore, she was kept in the hospital with physical therapy. Unfortunately, this did not improve, and therefore she will be transferred to rehab. DISPOSITION: The patient will be transferred to rehab. No changes were made on her chronic home medication or diet. Physical Therapy will be consulted in rehab. TIME SPENT: Greater than 30 minutes were spent in total care. cc: Juan Carlos Covarrubias MD [facility]
[2019-04-05] MEDS: KLOR-CON PO SCH (09:41)
[2019-04-05] MEDS: COZAAR PO SCH (09:41)
[2019-04-05] MEDS: ASPIRIN EC PO SCH (09:41)
[2019-04-05] MEDS: CALTRATE 600 + D PO SCH (09:41)
[2019-04-05] MEDS: HYDROCHLOROTHIAZIDE PO SCH (09:41)
[2019-04-05] MEDS: LASIX PO SCH (09:42)
[2019-04-05] MEDS: OMNICEF PO SCH (09:42)
[2019-04-05] MEDS: ZYLOPRIM PO SCH (09:42)
--- NOTE | 2019-04-05 10:09 | Diag Imaging Result Doc PS360 ---
CHEST-PORTABLE - 04/05/2019 INDICATION: rehab COMPARISON: 12/16/2018 FINDINGS: There is a stable hiatal hernia behind the heart. The lungs are clear. Heart size is normal. No pneumothorax or pleural effusion. IMPRESSION: No acute disease or change from prior. Electronically signed by Delano Hull 04/05/2019 10:06 AM
== END 2019-04-05 15:30 | DRG 683 ==
LOC: P.ED 08:47 → P.MEDSURG 15:09
PROVIDERS: ADMIT Family Medicine; ATTEND Family Medicine